=== PATIENT | male | born 1930 | race Caucasian/White ===

== ENCOUNTER 2017-12-04 19:41 | Inpatient (IN) | payer OTHER ==
[~2017-12-04] VITALS: Ht 177.8 cm; Wt 91.5 kg
[~2017-12-04 19:41] MED LIST: ADULT ASPIRIN R81 MG PO; AMLODIPINE BESYL5 MG PO; FENOFIBRATE160 M1 PO; LISINOPRIL10 MG PO; LISINOPRIL5 MG PO; NORVASC2.5 MG PO; TRICOR48 MG PO
[2017-12-04 21:48] LABS: HEMATOCRIT 46.1 % (38.0-50.0); HEMOGLOBIN 14.7 G/DL (12.5-16.6); MCH 29.2 PG (29.0-34.0); MCHC 31.9 G/DL (30.0-36.0); MCV 91.7 FL (86-99); PLATELET COUNT 165 K/uL (156-360); RBC DIS.WIDTH-CV 14.2 % (11.8-14.6); RBC DIS.WIDTH-SD 47.9 % (39-53); RED BLOOD COUNT 5.03 M/uL (4.00-5.50); WHITE BLOOD COUNT 6.9 K/uL (4.1-10.2)
[2017-12-04 22:08] LABS: ALBUMIN 4.1 G/DL (3.2-4.8); ALKALINE PHOSPHATASE 43 IU/L (3-129); ALT (GPT) 12 IU/L (3-49); AST (GOT) 19 IU/L (2-34); CHLORIDE 104 MEQ/L (99-109); CREATININE 1.2 MG/DL (0.6-1.3); GFR ESTIMATE (CALCULATED) > 59 mL/min/ (58.99-99999); GLUCOSE 133 mg/dL (70-99); POTASSIUM 4.2 MEQ/L (3.7-5.4); SODIUM 138 MEQ/L (136-147); TOTAL BILIRUBIN 0.4 MG/DL (0.0-1.0); TOTAL PROTEIN 7.3 G/DL (6.4-8.3); UREA NITROGEN (BUN) 28 mg/dL (9-23)
[2017-12-04 22:10] LABS: TROP-I INTERPRETATION NEGATIVE; TROPONIN-I 0.02 ng/mL (0.0-0.30)
[2017-12-05] VITALS (8 sets, daily range): BP systolic 125–169; BP diastolic 60–90
[2017-12-05] MEDS ORDERED: OCUVITE TABLET1 EACH PO (00:03)
[2017-12-05 00:07] LABS: INTER. NORMALIZED RATIO 1.2
[2017-12-05 00:09] LABS: PTT 25.4 SEC (25-37)
[2017-12-05 06:23] LABS: HEMATOCRIT 41.1 % (38.0-50.0); HEMOGLOBIN 13.2 G/DL (12.5-16.6); MCH 28.9 PG (29.0-34.0); MCHC 32.1 G/DL (30.0-36.0); MCV 90.1 FL (86-99); PLATELET COUNT 135 K/uL (156-360); RBC DIS.WIDTH-CV 14.2 % (11.8-14.6); RBC DIS.WIDTH-SD 46.7 % (39-53); RED BLOOD COUNT 4.56 M/uL (4.00-5.50); WHITE BLOOD COUNT 6.8 K/uL (4.1-10.2)
[2017-12-05 06:34] LABS: INTER. NORMALIZED RATIO 1.2
[2017-12-05 06:53] LABS: TROP-I INTERPRETATION INDETERMINATE; TROPONIN-I 0.32 ng/mL (0.0-0.30)
[2017-12-05 13:00] LABS: TROP-I INTERPRETATION NEGATIVE; TROPONIN-I 0.16 ng/mL (0.0-0.30)
[2017-12-06 03:26] VITALS: BP 116/62
[2017-12-06 06:46] LABS: HEMATOCRIT 43.2 % (38.0-50.0); HEMOGLOBIN 13.8 G/DL (12.5-16.6); MCH 29.1 PG (29.0-34.0); MCHC 31.9 G/DL (30.0-36.0); MCV 91.1 FL (86-99); PLATELET COUNT 154 K/uL (156-360); RBC DIS.WIDTH-CV 14.3 % (11.8-14.6); RBC DIS.WIDTH-SD 48.1 % (39-53); RED BLOOD COUNT 4.74 M/uL (4.00-5.50); WHITE BLOOD COUNT 6.8 K/uL (4.1-10.2)
[2017-12-06 07:12] LABS: PTT 73.7 SEC (25-37)
[2017-12-06 07:13] LABS: ALBUMIN 3.5 G/DL (3.2-4.8); ALKALINE PHOSPHATASE 32 IU/L (3-129); ALT (GPT) 10 IU/L (3-49); AST (GOT) 15 IU/L (2-34); CHLORIDE 105 MEQ/L (99-109); CREATININE 1.3 MG/DL (0.6-1.3); GFR ESTIMATE (CALCULATED) 56 mL/min/ (58.99-99999); GLUCOSE 90 mg/dL (70-99); MAGNESIUM 1.8 mg/dl (1.3-2.7); POTASSIUM 4.3 MEQ/L (3.7-5.4); SODIUM 141 MEQ/L (136-147); TOTAL BILIRUBIN 0.5 MG/DL (0.0-1.0); TOTAL PROTEIN 6.5 G/DL (6.4-8.3); UREA NITROGEN (BUN) 20 mg/dL (9-23)
[2017-12-06 07:30] VITALS: BP 121/61
[2017-12-06 08:58] LABS: INTER. NORMALIZED RATIO 1.3
[2017-12-06 11:45] VITALS: BP 118/58
[2017-12-06 15:37] VITALS: BP 105/55
[2017-12-06 19:16] VITALS: BP 114/57
[2017-12-07 03:30] VITALS: BP 125/59
[2017-12-07 06:21] LABS: INTER. NORMALIZED RATIO 1.3
[2017-12-07 06:24] LABS: PTT 69.2 SEC (25-37)
[2017-12-07 08:50] VITALS: BP 122/59
[2017-12-07 11:29] VITALS: BP 126/59
[2017-12-07 15:53] VITALS: BP 115/56
[2017-12-07 19:34] VITALS: BP 124/63
[2017-12-08 03:30] VITALS: BP 106/66
[2017-12-08 05:43] LABS: HEMATOCRIT 40.7 % (38.0-50.0); HEMOGLOBIN 13.3 G/DL (12.5-16.6); MCH 29.6 PG (29.0-34.0); MCHC 32.7 G/DL (30.0-36.0); MCV 90.4 FL (86-99); PLATELET COUNT 164 K/uL (156-360); RBC DIS.WIDTH-CV 14.3 % (11.8-14.6); RBC DIS.WIDTH-SD 46.9 % (39-53)
[2017-12-08 05:56] LABS: INTER. NORMALIZED RATIO 2.1
[2017-12-08 05:59] LABS: PTT 83.8 SEC (25-37)
[2017-12-08 08:09] VITALS: BP 107/60
[2017-12-08 11:33] VITALS: BP 114/59
[2017-12-08] MEDS ORDERED: ELIQUIS5 MG PO (13:26)
[2017-12-08 16:26] VITALS: BP 129/61
== END 2017-12-08 16:36 | disposition home health service (06) | DRG 299 ==
LOC: EME 19:41 → EDOF 12-05 00:06 → ENRESERV 12-05 00:09 → 4EAST 12-05 01:58
PROVIDERS: Emergency Medicine; Hospitalist; Internal Medicine
DX: I82.432 Acute embolism and thrombosis of left popliteal vein (principal); I26.92 Saddle embolus of pulmonary artery without acute cor pulmonale; I82.412 Acute embolism and thrombosis of left femoral vein; Z95.1 Presence of aortocoronary bypass graft; E78.5 Hyperlipidemia, unspecified; Z85.46 Personal history of malignant neoplasm of prostate; R09.02 Hypoxemia; R55 Syncope and collapse; R74.8 Abnormal levels of other serum enzymes; I25.10 Atherosclerotic heart disease of native coronary artery without angina pectoris; E78.00 Pure hypercholesterolemia, unspecified; I10 Essential (primary) hypertension; I08.1 Rheumatic disorders of both mitral and tricuspid valves; I27.20 Pulmonary hypertension, unspecified; Z92.21 Personal history of antineoplastic chemotherapy; Z95.5 Presence of coronary angioplasty implant and graft
CPT/HCPCS: 71046; 71275; 80053; 82272; 83735; 83880; 84153; 84484; 85027; 85379; 85610; 85730; 93005; 93306; 93970; 94799; 99281; 99285

== ENCOUNTER 2018-01-22 17:19 | Observation (INO) | payer OTHER ==
[~2018-01-22] VITALS: Ht 177.8 cm; Wt 89.3 kg
[~2018-01-22 17:19] MED LIST changes: +ELIQUIS5 MG PO; +OCUVITE TABLET1 EACH PO
[2018-01-22 19:03] LABS: APPEARANCE CLEAR ((CLEAR)); BILIRUBIN NEGATIVE; BLOOD NEGATIVE; COLOR YELLOW ((YELLOW)); GLUCOSE (STRIP) NEGATIVE; KETONES NEGATIVE; LEUKOCYTES NEGATIVE; NITRITE NEGATIVE; PROTEIN (STRIP) NEGATIVE; SPECIFIC GRAVITY 1.021 (1.000-1.030); UCUL ADDED? NO; UROBILINOGEN 0.2 MG/DL (0.2-1.0)
[2018-01-22 19:25] LABS: HEMATOCRIT 44.3 % (38.0-50.0); HEMOGLOBIN 14.4 G/DL (12.5-16.6); MCH 29.7 PG (29.0-34.0); MCHC 32.5 G/DL (30.0-36.0); MCV 91.3 FL (86-99); PLATELET COUNT 164 K/uL (156-360); RBC DIS.WIDTH-CV 14.5 % (11.8-14.6); RBC DIS.WIDTH-SD 48.4 % (39-53); RED BLOOD COUNT 4.85 M/uL (4.00-5.50); WHITE BLOOD COUNT 6.3 K/uL (4.1-10.2)
[2018-01-22 19:42] LABS: ALBUMIN 3.8 g/dL (3.2-4.8); CHLORIDE 105 mEq/L (99-109)
[2018-01-22 19:43] LABS: POTASSIUM 4.2 mEq/L (3.7-5.4); SODIUM 140 mEq/L (136-147)
[2018-01-22 19:45] LABS: GLUCOSE 96 mg/dL (70-99); TOTAL PROTEIN 7.2 g/dL (6.4-8.3); TROP-I INTERPRETATION NEGATIVE; TROPONIN-I 0.01 ng/mL (0.0-0.30)
[2018-01-22 19:47] LABS: TOTAL BILIRUBIN 0.4 mg/dL (0.0-1.0)
[2018-01-22 19:48] LABS: ALKALINE PHOSPHATASE 39 IU/L (3-129); CREATININE 1.2 mg/dL (0.6-1.3); GFR ESTIMATE (CALCULATED) > 59 mL/min/ (58.99-99999)
[2018-01-22 19:49] LABS: UREA NITROGEN (BUN) 17 mg/dL (9-23)
[2018-01-22 19:50] LABS: AST (GOT) 16 IU/L (2-34)
[2018-01-22 19:51] LABS: ALT (GPT) 11 IU/L (3-49)
[2018-01-22] MEDS ORDERED: ELIQUIS5 MG PO (21:21)
[2018-01-22] MEDS ORDERED: LORAZEPAM0.5 MG PO (21:21)
[2018-01-22] MEDS ORDERED: SERTRALINE HCL25 MG PO (21:21)
[2018-01-23 00:44] VITALS: BP 125/61
[2018-01-23 01:27] LABS: TROP-I INTERPRETATION NEGATIVE; TROPONIN-I 0.01 ng/mL (0.0-0.30)
[2018-01-23 07:43] VITALS: BP 123/60
[2018-01-23 09:01] LABS: TROP-I INTERPRETATION NEGATIVE; TROPONIN-I 0.01 ng/mL (0.0-0.30)
[2018-01-23 12:13] VITALS: BP 141/79
[2018-01-23] MEDS ORDERED: MIRTAZAPINE15 MG PO (12:34)
== END 2018-01-23 15:20 | disposition home or self-care (01) ==
LOC: EME 17:19 → EDOF 22:51 → 4SOUTH 22:51 → ENRESERV 22:52 → 4SOUTH 23:59
PROVIDERS: Nurse Practitioner Family; Physician Assistant
DX: R61 Generalized hyperhidrosis (principal); F41.0 Panic disorder [episodic paroxysmal anxiety]; F43.23 Adjustment disorder with mixed anxiety and depressed mood; I25.10 Atherosclerotic heart disease of native coronary artery without angina pectoris; Z95.1 Presence of aortocoronary bypass graft; Z86.718 Personal history of other venous thrombosis and embolism; Z86.711 Personal history of pulmonary embolism; Z79.01 Long term (current) use of anticoagulants; I10 Essential (primary) hypertension; E78.5 Hyperlipidemia, unspecified; Z85.46 Personal history of malignant neoplasm of prostate; Z90.49 Acquired absence of other specified parts of digestive tract; K44.9 Diaphragmatic hernia without obstruction or gangrene; Z88.8 Allergy status to other drugs, medicaments and biological substances; Z79.82 Long term (current) use of aspirin
CPT/HCPCS: 70450; 71046; 80053; 81003; 84484; 85027; 93005; 99281; 99285; G0378